=== PATIENT | female | born 1980 | race Two or more races ===

== ENCOUNTER 2021-04-24 17:25 | Emergency (ER) | payer OTHER ==
[~2021-04-24] VITALS: Ht 162.6 cm; Wt 99.8 kg
[2021-04-24] MEDS ORDERED: TUSSIN DM LIQU118 ML PO (18:00)
== END 2021-04-24 20:28 | disposition home or self-care (01) ==
LOC: ER 17:25
DX: B34.9 Viral infection, unspecified (principal)

== ENCOUNTER 2021-10-01 09:55 | Emergency (ER) | payer OTHER ==
[~2021-10-01] VITALS: Ht 162.6 cm; Wt 108.9 kg
[~2021-10-01 09:55] MED LIST: TUSSIN DM LIQU118 ML PO
[2021-10-01] MEDS ORDERED: PEPCID AC20 MG PO (16:22)
[2021-10-01] MEDS ORDERED: INTESTINEX680 M1 PO (16:22)
[2021-10-01] MEDS ORDERED: ONDANSETRON ODT4 MG PO (16:22)
== END 2021-10-01 16:40 ==
LOC: ER 09:55
DX: K29.70 Gastritis, unspecified, without bleeding (principal); E86.0 Dehydration; Z20.822 Contact with and (suspected) exposure to COVID-19; K76.0 Fatty (change of) liver, not elsewhere classified; Z88.5 Allergy status to narcotic agent

== ENCOUNTER 2022-07-27 01:48 | Emergency (ER) | payer OTHER ==
[~2022-07-27] VITALS: Ht 160 cm; Wt 104.3 kg
[~2022-07-27 01:48] MED LIST changes: +INTESTINEX680 M1 PO; +ONDANSETRON ODT4 MG PO; +PEPCID AC20 MG PO
== END 2022-07-27 03:54 | disposition home or self-care (01) ==
LOC: ER 01:48
DX: H60.8X1 Other otitis externa, right ear (principal); M54.89 Other dorsalgia; H92.01 Otalgia, right ear; M54.2 Cervicalgia; Z88.5 Allergy status to narcotic agent